=== PATIENT | female | born 1945 | race Caucasian/White ===

== ENCOUNTER 2017-10-07 03:44 | Day surgery (SDC) | payer MEDICARE, OTHER ==
[2017-10-06 13:37] VITALS: BP 139/89
--- NOTE | 2017-10-06 13:59 | PCM.EKG ---
[facility] Test Date: 2017-10-06 Test Time: 13:49:47 Pat Name: SRAVANTHI REYES Department: Room: Gender: F [employer] Technician: HERMINIO : 1945 Requested By: MERNA LUGO Order Number: [id number] Reading MD: Bertha Vines Measurements Intervals Allen Rate: 70 P: 76 MA: 188 QRS: -24 QRSD: 124 T: 86 QT: 430 QTc: 464 Interpretive Statements Normal sinus rhythm Left ventricular hypertrophy with QRS widening Nonspecific T wave abnormality Abnormal ECG No previous ECG available for comparison Electronically Signed On 10-10-2017 10:37:43 RAISIN WASHER by Bertha Vines Please click the below link to view image of tracing.
[2017-10-06 16:07] LABS: BASOPHIL % 0.3 % (0.0-0.2); EOSINOPHIL # 0.2 10^3/uL (0.0-0.2); EOSINOPHIL % 2.8 % (0.0-5.0); HEMOGLOBIN 12.3 g/dL (12.0-15.0); LYMPHOCYTES # 1.2 10^3/uL (1.0-4.8); MEAN CELL HGB 27.5 pg (26-34); MEAN CELL HGB CONCENTRATION 31.5 g/dL (33-37); MEAN CORP VOLUME 87.5 fL (78-100); MEAN PLATELET VOLUME 10.9 fL (7.8-11.0); MONOCYTES # 0.7 10^3/uL (0.3-0.8); NEUTROPHILS % 65.6 % (41.0-85.0); RED CELL DISTRIBUTION WIDTH 13.8 % (11.5-14.5); WHITE BLOOD CELL 6.1 10^3/uL (4.5-11.0)
[2017-10-06 16:28] LABS: CALCIUM 9.9 mg/dL (8.4-10.5); CARBON DIOXIDE 25.3 mmol/L (20.0-32)
[~2017-10-07] VITALS: Ht 157.5 cm; Wt 76.7 kg
[2017-10-07] VITALS (10 sets, daily range): BP systolic 102–141; BP diastolic 46–104
[~2017-10-07 03:44] MED LIST: ASCO500C PO; ASPI-484 PO; CIPR500T86 PO; GABA300C10 PO; INSU100C SQ; INSU100I13 SQ; LEVO125T6 PO; LEVO150T6 PO; LEVO500T51 PO; LISI-414 PO; METF10002 PO; OXYB5TAB7 PO; PRAV40TA2 PO; SITA100T PO; TRAM50TA PO; [UNRECOGNIZED DRUG - CODE] PO
[2017-10-07] MEDS ORDERED: NS 1000ML 1,000 ML ONE (04:56)
[2017-10-07] MEDS ORDERED: LASIX ONE (05:05)
[2017-10-07] MEDS ORDERED: NS 1000ML 1,000 ML IV SCH (07:00)
[2017-10-07] MEDS ORDERED: LASIX IV ONE (07:30)
[2017-10-07] MEDS ORDERED: VERSED ONE (08:21)
[2017-10-07] MEDS ORDERED: DECADRON ONE (08:21)
[2017-10-07] MEDS ORDERED: TORADOL ONE (08:21)
[2017-10-07] MEDS ORDERED: ZOFRAN ONE (08:21)
[2017-10-07] MEDS ORDERED: DIPRIVAN IV ONE (08:22)
[2017-10-07] MEDS ORDERED: LIDOCAINE 2% VIAL ONE (08:23)
[2017-10-07] MEDS ORDERED: TRAM50TA PO (09:40)
[2017-10-07] MEDS ORDERED: TAMS0.4C2 PO (09:40)
[2017-10-07] MEDS ORDERED: NORCO 7.5MG PO PRN (10:00)
[2017-10-07] MEDS ORDERED: LACTATED RINGERS 1,000 ML IV SCH (10:00)
--- NOTE | 2017-10-07 11:50 | OPH ---
DATE OF SURGERY: 10/07/2017 PREOPERATIVE DIAGNOSIS: Left renal calculus. FINAL DIAGNOSIS: Left renal calculus. PROCEDURE: Left ESWL. DESCRIPTION OF PROCEDURE: The patient was brought to the lithotripsy room and was put in the supine position on the lithotripsy table. A left preop renal ultrasound was initially performed which revealed a stone in the middle pole of the left kidney measuring 7 mm in diameter. There was no evidence of hydronephrosis and no cysts or masses noted. After the patient was given an LMA general anesthesia and after localization of the stone with the use of the ultrasound, a left ESWL was then performed using the [employer] Compact Delta II Lithotripter. A total of 1500 shockwaves were delivered to the stones in the left kidney under ultrasound guidance. After fragmentation of the stone was noted on the ultrasound, the procedure was terminated. The patient was then awakened and was transferred to the recovery room in a stable condition. Travis Bergman MD DR: MANSOOR/rafaela JOB# [id number]
== END 2017-10-07 10:52 | disposition home or self-care (01) | DRG 694 ==
LOC: SDC 03:44
PROVIDERS: ATTEND Urology
DX: N20.0 Calculus of kidney (principal); E66.9 Obesity, unspecified; Z68.30 Body mass index [BMI] 30.0-30.9, adult; E11.9 Type 2 diabetes mellitus without complications; E78.00 Pure hypercholesterolemia, unspecified; E05.90 Thyrotoxicosis, unspecified without thyrotoxic crisis or storm; Z90.710 Acquired absence of both cervix and uterus; Z98.890 Other specified postprocedural states; Z90.49 Acquired absence of other specified parts of digestive tract; Z85.3 Personal history of malignant neoplasm of breast; Z87.891 Personal history of nicotine dependence
CPT/HCPCS: 36415; 50590; 80048; 82948 ×2; 85025; 85610; 85730; 93005; J1100; J1885; J2001; J2250; J2405; J3490; J7030; J1940

== ENCOUNTER → 2018-03-10 | Outpatient (CLI) | payer MEDICARE, OTHER ==
[~2018-03-10] MED LIST changes: -METF10002 PO; +METF10003 PO; +TAMS0.4C2 PO
--- NOTE | 2018-03-14 00:29 | STRESS ---
DATE OF SERVICE: 03/10/2018 PROCEDURE: Nuclear MUGA scan result. FINDINGS: The left ventricle is mildly dilated. Left ventricular ejection fraction on 2 sequential measurements is 41%. CONCLUSION: Mild systolic hypokinesis with ejection fraction 41%. FAYE WHYTE MD DR: TAWNY/rafaela JOB# [id number]
== END | disposition home or self-care (01) ==
LOC: RAD 12:54
PROVIDERS: ATTEND Internal Medicine Cardiovascular Disease
DX: R07.89 Other chest pain (principal)
CPT/HCPCS: 78472; A9512; A9560